=== PATIENT | male | born 1955 | race Caucasian/White ===

== ENCOUNTER → 2016-10-22 | Outpatient (CLI) | payer OTHER ==
[~2016-10-22] MED LIST: CHOL1CAP30 PO; COEN100C7; DEXTSYP41 PO; MAGNESIUM OXIDE PO; METO-157 PO; MULTCHW PO; NXM/40 PO; SIMV20TA2 PO; ZINC50TA3 PO
[2016-10-22 09:55] LABS: CALCIUM 9.1 mg/dl (8.5-10.1)
[2016-10-22 09:57] LABS: ALT/SGPT 30 U/L (12-78); BLOOD UREA NITROGEN 11 mg/dl (7-18); BUN/CREATININE RATIO 10.3 (10-20); CARBON DIOXIDE 29 mmol/L (21-32); CHLORIDE 108 mmol/L (98-107); CHOLESTEROL 172 mg/dl (0-200); GLUCOSE 87 mg/dl (70-99); SODIUM 142 mmol/L (136-145); TRIGLYCERIDES 86 mg/dl (0-150); VERY LOW DENSITY LIPOPROT CALC 17 mg/dl
[2016-10-22 10:02] LABS: ALB/GLOB RATIO 1.1 (0.9-2); ALKALINE PHOSPHATASE 100 U/L (45-117); AST/SGOT 21 U/L (15-37); CHOLESTEROL/HDL RATIO 2.9; HDL CHOLESTEROL 60 mg/dl; LDL CHOLESTEROL CALCULATED 95 mg/dl
== END | disposition home or self-care (01) ==
LOC: C.LAB 08:24
PROVIDERS: ATTEND Internal Medicine
DX: Z11.59 Encounter for screening for other viral diseases (principal); Z80.42 Family history of malignant neoplasm of prostate; E78.00 Pure hypercholesterolemia, unspecified

== ENCOUNTER → 2017-09-16 | Day surgery (SDC) | payer OTHER ==
[2017-09-10 07:47] VITALS: Ht 160 cm; Wt 57.3 kg
[~2017-09-16] VITALS: Ht 160 cm; Wt 57.3 kg
[~2017-09-16] MED LIST changes: +ASPCH81X PO; +CEPH500C2 PO; +CHOL100010 PO; -CHOL1CAP30 PO; -COEN100C7; +COEN1CAP17 PO; +COEN30CA8 PO; -DEXTSYP41 PO; +LIDOCAINE HCL 2% 2 ML VIAL (20MG/ML) ONE; +MAGN250T16 PO; -MAGNESIUM OXIDE PO; -METO-157 PO; +METO5TAB2 PO; +MULT-506 PO; -MULTCHW PO; -NXM/40 PO; +PANT40TA PO; +PANT40TA2 PO; +PROPOFOL IV EMULSION 10 MG/ML 20 ML VIAL IV ONE; +RGL/5 PO; +SACC250C3 PO; +SIMV-151 PO; +SULF800T23 PO; +ZINC PO; +ZINC30TA3 PO; -ZINC50TA3 PO
--- NOTE | 2017-09-16 10:29 | Endo History and Physical ---
History & Physical Date of Service: Sep 16, 2017. Chief Complaint: Dysphagia Referring Physician: Dr. George Finley History of Present Illness 61 yo CM who presents for EGD secondary to dysphagia. Past Medical History Gastrointestinal Disorder, Reflux, High Cholesterol Past Surgical History Hx Cardiac Surgery: Yes (HEART CATH/NO STENTS) Hx Internal Defibrillator: No Hx Pacemaker: No Hx Abdominal Surgery: No Hx of Implantable Prosthesis: No Hx Post-Op Nausea and Vomiting: No Hx Cancer Surgery: No Hx Thoracic Surgery: No Hx Orthopedic: Yes (GANGLION WRIST L,TOE EXCISION GANGLION,ORIF R FINGER) Hx Urinary Tract Surgery: No Family History IBD Social History Smoking Status: Never Smoker Hx Substance Use: No Hx Alcohol Use: Yes (1 GLASS OF WINE ON MOST DAYS) Allergies Coded Allergies: No Known Allergies (Verified , 09/16/17) Current Medications Reported Home Medications Medications Dose Route/Sig Max Daily Dose Days Date Category Dose Instructions Aspirin Chewable (Aspirin) 81 Mg Chew 81 Mg PO QAM 09/10/17 Reported [Zinc] Unknown Dose PO DAILY 09/10/17 Reported Vitamin D (Cholecalciferol) 1,000 Unit Tab 1 Tab PO DAILY 09/10/17 Reported Zocor (Simvastatin) 20 Mg Tab 20 Mg PO QPM 09/10/17 Reported Protonix (Pantoprazole Sodium) 40 Mg Tab 40 Mg PO QAM 09/10/17 Reported ON HOLD Metoclopramide Hcl 5 Mg Tab 1 Tab PO BID PRN 09/10/17 Reported Magnesium Oxide (Magnesium Oxide (Mg Supplement) 250 Mg Tab 1 Tab PO BID 09/10/17 Reported Coq-10 (Coenzyme Q10 (Ubidecarenone)) 30 Mg Cap Unknown Dose PO DAILY 09/10/17 Reported Multivitamin (Multivitamins) Tab 1 Tab PO DAILY 09/10/17 Reported Vital Signs Weight (Kilograms): 57.27 Height (Feet): 5 Height (Inches): 3 Date Time Temp Pulse Resp B/P (MAP) Pulse Ox O2 Delivery O2 Flow Rate FiO2 09/16/17 10:09 36.7 83 20 132/89 (103) 97 Room Air Physical Exam General Appearance: WD/WN, no apparent distress Respiratory/Chest: Auscultation: breath sounds normal Cardiovascular: Heart Auscultation: RRR Abdomen: Bowel Sounds: normal Inspection & Palpation: soft, non-distended, no tenderness, guarding & rebound Assessment and Plan Assessment: 61 yo CM who presents for EGD secondary to dysphagia. Plan: Proceed with EGD.
--- NOTE | 2017-09-16 11:32 | GI REPORT ---
Procedure Date: 09/16/2017 11:03 AM Procedure: Upper GI endoscopy Indications: Dysphagia Medicines: Monitored Anesthesia Care Complications: No immediate complications. Estimated Blood Loss: Estimated blood loss: none. Procedure: Pre-Anesthesia Assessment: - Prior to the procedure, a History and Physical was performed, and patient medications and allergies were reviewed. The patient's tolerance of previous anesthesia was also reviewed. The risks and benefits of the procedure and the sedation options and risks were discussed with the patient. All questions were answered, and informed consent was obtained. Prior Anticoagulants: The patient has taken aspirin, last dose was 6 days prior to procedure. ASA Grade Assessment: II - A patient with mild systemic disease. After reviewing the risks and benefits, the patient was deemed in satisfactory condition to undergo the procedure. After obtaining informed consent, the endoscope was passed under direct vision. Throughout the procedure, the patient's blood pressure, pulse, and oxygen saturations were monitored continuously. The On-site loaner was introduced through the mouth, and advanced to the second part of duodenum. The upper GI endoscopy was accomplished without difficulty. The patient tolerated the procedure well. Findings: Biopsies were taken with a cold forceps in the middle third of the esophagus for histology. A moderate Schatzki ring (acquired) was found at the gastroesophageal junction. A TTS dilator was passed through the scope. Dilation with a 15-16.5-18 mm balloon dilator was performed to 16.5 mm. The dilation site was examined and showed moderate improvement in luminal narrowing. A small hiatal hernia was present. The examined duodenum was normal. Impression: - Moderate Schatzki ring. Dilated. - Small hiatal hernia. - Normal examined duodenum. - Biopsies were taken with a cold forceps for histology in the middle third of the esophagus. Recommendation: - Resume previous diet. - Continue present medications. - Await pathology results. - Return to primary care physician as previously scheduled. Christopher Mishra, 09/16/2017 11:31:45 AM This report has been signed electronically. Note Initiated On: 09/16/2017 11:03 AM I attest to the content of the Intraoperative Record and orders documented therein, exceptions below
[2017-09-16 12:05] VITALS: BP 111/75; PULSE 80; O2SAT 98
--- NOTE | 2017-09-16 12:23 | Anesthesiology Progress Note ---
Anesthesia Post Op Note Date & Time Sep 16, 2017 at 12:23 Vital Signs Pain Intensity: 0 Vital Signs Past 12 Hours Date Time Temp Pulse Resp B/P (MAP) Pulse Ox O2 Delivery O2 Flow Rate FiO2 09/16/17 12:05 80 20 111/75 (87) 98 Room Air 09/16/17 11:49 79 20 103/72 (82) 96 Room Air 09/16/17 11:34 36.4 61 20 107/73 (84) 96 Room Air 09/16/17 10:09 36.7 83 20 132/89 (103) 97 Room Air Notes Mental Status: alert / awake / arousable, participated in evaluation Pt Amnestic to Procedure: Yes Nausea / Vomiting: adequately controlled Pain: adequately controlled Airway Patency, RR, SpO2: stable & adequate BP & HR: stable & adequate Hydration State: stable & adequate Anesthetic Complications: no major complications apparent
--- NOTE | 2017-09-16 12:29 | Discharge Instructions ---
Endoscopy Patient Instructions Date / Procedure(s) Performed Sep 16, 2017. EGD Allergy Information Coded Allergies: No Known Allergies (Verified , 09/16/17) Discharge Date / Findings Sep 16, 2017. Schatzki's ring s/p dilation Hiatal hernia Mid-esophageal biopsies Medication Instructions 1) Restart Pantoprazole 40mg by mouth each morning 1/2 hour prior to breakfast. 2) OK to resume all medications today as prescribed Reported Home Medications Medications Dose Route/Sig Max Daily Dose Days Date Category Dose Instructions Aspirin Chewable (Aspirin) 81 Mg Chew 81 Mg PO QAM 09/10/17 Reported [Zinc] Unknown Dose PO DAILY 09/10/17 Reported Vitamin D (Cholecalciferol) 1,000 Unit Tab 1 Tab PO DAILY 09/10/17 Reported Zocor (Simvastatin) 20 Mg Tab 20 Mg PO QPM 09/10/17 Reported Protonix (Pantoprazole Sodium) 40 Mg Tab 40 Mg PO QAM 09/10/17 Reported ON HOLD Metoclopramide Hcl 5 Mg Tab 1 Tab PO BID PRN 09/10/17 Reported Magnesium Oxide (Magnesium Oxide (Mg Supplement) 250 Mg Tab 1 Tab PO BID 09/10/17 Reported Coq-10 (Coenzyme Q10 (Ubidecarenone)) 30 Mg Cap Unknown Dose PO DAILY 09/10/17 Reported Multivitamin (Multivitamins) Tab 1 Tab PO DAILY 09/10/17 Reported Provider Instructions Activity Restrictions - No exercising or heavy lifting for 24 hours. - Do not drink alcohol the day of the procedure. - Do not drive a car or operate machinery until the day after the procedure. - Do not make any important decisions or sign important papers in 24 hours after the procedure. Following Day: - Return to full activity which may include returning to work/school. Diet Start your diet with liquids and light foods (jello, soup, juice, toast). Then eat your usual diet if not nauseated. Treatment For Common After Affects For mild abdominal pain, bloating, or excessive gas: - Rest - Eat lightly - Lie on right side Follow-Up Information Follow-up with Dr. George Finley as scheduled Anesthesia Information What You Should Know You have had a procedure that required some medicine to reduce anxiety and discomfort. This treatment is called moderate sedation. After receiving the treatment, you may be sleepy, but you will be able to breathe on your own. The effects of the treatment may last for several hours. Follow these instructions along with Activity/Diet recommendations noted above: * Do NOT do anything where dizziness or clumsiness would be dangerous. * Rest quietly at home today, then you can be up and about tomorrow. * Have a responsible person stay with you the rest of today. * You may have had an I.V. today. If so, you may take the dressing off later today. Recommendations Call your doctor if: * Trouble breathing * Continuous vomiting for more than 24 hours * Temperature above 101 degrees * Severe abdominal pain or bloating * Pain not relieved by pain medicine ordered * There is increased drainage or redness from any incision * A large amount of rectal bleeding greater than 2-3 tablespoons. (If you had a polyp/s removed or have hemorrhoids, a small amount of blood - from the rectum is to be expected.) * You have any unanswered questions or concerns. IN THE EVENT OF A SERIOUS EMERGENCY, GO TO THE NEAREST EMERGENCY ROOM Your discharge instructions were prepared by provider Christopher Mishra. Patient Instructions Signature Page Nile Handy Patient (or Guardian) Signature/Date: I have read and understand the instructions given to me by my caregivers. Caregiver/RN/Doctor Signature/Date: The above-named patient and/or guardian has received patient instructions on this date. + Original Patient Signature Page (only) stays with chart. Please make copy for patient.
== END | disposition home or self-care (01) ==
LOC: C.GI 09:43
PROVIDERS: ATTEND Internal Medicine
DX: R13.10 Dysphagia, unspecified (principal); K20.9 Esophagitis, unspecified; K44.9 Diaphragmatic hernia without obstruction or gangrene; K22.2 Esophageal obstruction; K21.9 Gastro-esophageal reflux disease without esophagitis; E78.00 Pure hypercholesterolemia, unspecified; Z79.82 Long term (current) use of aspirin; Z79.899 Other long term (current) drug therapy

== ENCOUNTER 2017-09-20 13:58 | Emergency (ER) | payer OTHER ==
[~2017-09-20] VITALS: Ht 160 cm; Wt 59.4 kg
[~2017-09-20 13:58] MED LIST changes: -CEPH500C2 PO; -COEN1CAP17 PO; -LIDOCAINE HCL 2% 2 ML VIAL (20MG/ML) ONE; -PANT40TA2 PO; -PROPOFOL IV EMULSION 10 MG/ML 20 ML VIAL IV ONE; -RGL/5 PO; -SACC250C3 PO; -SIMV-151 PO; -SULF800T23 PO; -ZINC30TA3 PO
[2017-09-20 14:04] VITALS: Ht 160 cm; Wt 59.4 kg
[2017-09-20 14:28] VITALS: TEMP 36.8
--- NOTE | 2017-09-20 14:28 | EMERGENCY ROOM VISIT NOTE ---
History Report prepared by Rhona: Nikki Boyce Under the Supervision of: Dr. Jamie Garnica M.D. First contact with patient: 14:18 Chief Complaint: TOE PAIN, INJURY Stated Complaint: SWOLLEN TOE,REDNESS SPREADING TO FOOT History of Present Illness The patient is a 61 year old male who presents to the Emergency Room with complaints of persistent redness on his right second toe that started yesterday. The patient rates his pain a 4/10 in severity. The patient reports he has a history of ganglion cysts on his right foot. He notes he got one drained a couple of years ago. He states it has continued to move to the surface of his skin. The patient states the redness keeps spreading. He notes he had a small fever at home. The patient reports he does not have diabetes. He states he has a history of hyperlipidemia. The patient denies any nausea, vomiting, headache, dizziness, cough, or congestion. Source of History: patient Onset: yesteday Position: toe(s) Symptom Intensity: 4/10 Timing: other (persistent) Associated Symptoms: + fevers, No headache, No cough, No nausea, No vomiting Note: Denies dizziness or congestion. Review of Systems See HPI for pertinent positives and negatives. A total of ten systems were reviewed and were otherwise negative. Past Medical & Surgical Hyperlipidemia. Family History Diabetes mellitus Kidney disease Kidney stones Social History Smoking Status: Never Smoker Alcohol Use: occasionally Drug Use: none Marital Status: Housing Status: lives with family Occupation Status: employed Current/Historical Medications Scheduled Cephalexin Monohydrate (Keflex), 500 MG PO QID Cholecalciferol (Vitamin D), 1,000 INTER.UNIT PO DAILY Coenzyme Q10 (Ubidecarenone) (Co Q 10), 100 MG PO DAILY Magnesium Oxide (Mg Supplement (Magnesium Oxide), 250 MG PO BID Multivitamin (Multivitamin), 1 TAB PO DAILY Pantoprazole (Pantoprazole Sodium), 40 MG PO DAILY Saccharomyces Boulardii (Florastor), 1 CAP PO BID Simvastatin (Simvastatin), 20 MG PO HS Sulfa/Trimethoprim (Bactrim Ds 800MG/160MG), 1 TAB PO BID Sulfa/Trimethoprim (Bactrim Ds 800MG/160MG), 1 TAB PO BID Zinc Gluconate (Zinc), 30 MG PO DAILY Scheduled PRN Metoclopramide HCl (Metoclopramide HCl), 5 MG PO BID PRN for Bloating Allergies Coded Allergies: No Known Allergies (Verified , 09/16/17) Physical Exam Vital Signs Date Time Temp Pulse Resp B/P (MAP) Pulse Ox O2 Delivery O2 Flow Rate FiO2 09/20/17 18:04 76 18 127/82 97 09/20/17 16:04 91 18 137/85 96 Room Air 09/20/17 14:28 36.8 98 14 141/90 95 Room Air 09/20/17 14:04 36.7 107 18 142/77 96 Room Air Physical Exam GENERAL: Awake, alert, well-appearing, in no distress HENT: Normocephalic, atraumatic. Oropharynx unremarkable. EYES: Normal conjunctiva. Sclera non-icteric. NECK: Supple. No nuchal rigidity. FROM. No JVD. RESPIRATORY: Clear to auscultation. CARDIAC: Regular rate, normal rhythm. Extremities warm and well perfused. Pulses equal. ABDOMEN: Soft, non-distended. No tenderness to palpation. No rebound or guarding. No masses. RECTAL: Deferred. MUSCULOSKELETAL: Chest examination reveals no tenderness. The back is symmetrical on inspection without obvious abnormality. There is no CVA tenderness to palpation. No joint edema. LOWER EXTREMITIES: Calves are equal size bilaterally and non-tender. Mild edema , erythema, and warmth of the distal right 2nd phalanx with area of fluctuance on dorsal aspect of the distal phalanx. NEURO: Normal sensorium. No sensory or motor deficits noted. SKIN: No rash or jaundice noted. Medical Decision & Procedures ER Provider Diagnostic Interpretation: Radiology results as stated below per my review and radiologist interpretation: R TOE(S) MIN 2 VIEWS CLINICAL HISTORY: second toe pain swelling pain. Edema. COMPARISON: None. DISCUSSION: Mild degenerative change distal flange of joint second toe. Localized soft tissue edema. No evidence for acute fracture or dislocation. Cortical margins appear to be intact. IMPRESSION: Nonspecific soft tissue edema overlying the distal phalanx right second toe. No acute bony abnormality The above report was generated using voice recognition software. It may contain grammatical, syntax or spelling errors. Electronically signed by: Reginald Calvo M.D. 09/20/2017 3:16 PM Dictated Date/Time: 09/20/2017 3:15 PM Medications Administered Medications (Trade) Dose Ordered Sig/[place] Route Start Time Stop Time Status Last Admin Dose Admin Cephalexin Monohydrate (Keflex Cap) 500 mg NOW STAT PO 09/20/17 17:44 09/20/17 17:45 DC 09/20/17 18:03 500 MG Cephalexin Monohydrate (Keflex 500MG Home Pack) 1 homepack NOW STAT PO 09/20/17 17:44 09/20/17 17:45 DC 09/20/17 18:03 1 HOMEPACK Trimethoprim/ Sulfamethoxazole (Septra Ds 800/ 160MG Tab) 2 tab NOW STAT PO 09/20/17 17:44 09/20/17 17:45 DC 09/20/17 18:03 2 TAB Procedure Incision & Drainage Indication: Dactylitis/abscess/cyst Location: Second right phalanx/toe Verbal consent was obtained after the risks and benefits were explained, including but not limited to bleeding, scarring, infection, pain, and bone/joint /nerve damage. At this time, the risks of the procedure are less than the risks of NOT performing the procedure. A time out was taken and the correct patient and site identified. The skin was prepped with betadine and a sterile field set. Area of fluctuance was entered with a number 11 blade and sero-sanguinous material expressed. Detailed wound care instructions and signs and symptoms of worsening infection reviewed with the patient. No complications and the patient tolerated the procedure well. ED Course 1418: The patient was evaluated in room C3. A complete history and physical exam was performed. 1700: I reevaluated the patient. Discussed results and discharge instructions: He verbalized understanding and agreement. The patient is ready for discharge. Medical Decision I reviewed the patient's past medical history, medications, and the nursing notes as described above. Differential diagnosis: Etiologies such as cellulitis, abscess, MRSA infection, DVT, necrotizing fasciitis, dermatitis, drug eruption, as well as others were entertained.. The patient is a 61-year-old gentleman with a past medical history of ganglion cysts followed by podiatry presents emergency department with worsening redness , warmth, and weeks per hpi. On arrival, patient is well-appearing no acute distress, afebrile stable vital signs. On exam patient has mild redness and warmth small area of fluctuance the dorsal aspect. Distal PMS intact. X-ray unremarkable. I&D of the area of fluctuance attempted per procedure note. Patient agreeable to deferring digital block given that area is small and would not require debridement. No purulence release although sero-sanguinous discharge from likely phlegmon with moderate improvement in swelling. The patient is currently on 1 tablet of double strength Bactrim twice daily. Thus, will increase coverage to 2 tablets of Bactrim DS BID and will add additional Gram+ coverage with Keflex. Patient will contact his podiatry tomorrow for a prompt f/u appointment. Findings and plan for follow-up reviewed with patient. Patient agreeable and d/c'd per discharge instructions. Medication Reconcilliation Current Medication List: was personally reviewed by me Impression Primary Impression: Dactylitis of toe Scribe Attestation The scribe's documentation has been prepared under my direction and personally reviewed by me in its entirety. I confirm that the note above accurately reflects all work, treatment, procedures, and medical decision making performed by me. Departure Information Dispostion Home / Self-Care Prescriptions Saccharomyces Boulardii (Florastor) 250 Mg Cap 1 CAP PO BID for 10 Days, #20 CAP Prov: Jamie Garnica M.D. 09/20/17 Cephalexin Monohydrate (KEFLEX) 500 Mg Cap 500 MG PO QID for 7 Days, #28 CAP Prov: Jamie Garnica M.D. 09/20/17 Sulfa/Trimethoprim (Bactrim Ds 800MG/160MG) Tab 1 TAB PO BID, #14 TAB Take with your current Bactrim DS prescription for dosing of 2 tablets twice daily. Prov: Jamie Garnica M.D. 09/20/17 Referrals George Finley M.D. 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 Acetaminophen or ibuprofen for pain and fevers as needed. Bactrim 2 tablets twice daily Keflex as directed. Florastor, probiotic, to help prevent antibiotic associated diarrhea. Drink plenty of fluids to ensure hydration. Return to the emergency department for worsening symptoms as described in the accompanying instructions.
[2017-09-20] MEDS ORDERED: XYLOCAINE 1%/SOD BICARB 20 ML VIAL INFIL ONE (14:45)
--- NOTE | 2017-09-20 15:17 | DIAGNOSTIC IMAGING REPORT ---
R TOE(S) MIN 2 VIEWS CLINICAL HISTORY: second toe pain swelling pain. Edema. COMPARISON: None. DISCUSSION: Mild degenerative change distal flange of joint second toe. Localized soft tissue edema. No evidence for acute fracture or dislocation. Cortical margins appear to be intact. IMPRESSION: Nonspecific soft tissue edema overlying the distal phalanx right second toe. No acute bony abnormality The above report was generated using voice recognition software. It may contain grammatical, syntax or spelling errors. Electronically signed by: Reginald Calvo M.D. 09/20/2017 3:16 PM Dictated Date/Time: 09/20/2017 3:15 PM
[2017-09-20] MEDS ORDERED: RGL/5 PO (15:40)
[2017-09-20] MEDS ORDERED: SULF800T23 PO ×2 (15:40→17:47)
[2017-09-20] MEDS ORDERED: SIMV-151 PO (15:40)
[2017-09-20] MEDS ORDERED: PANT40TA2 PO (15:40)
[2017-09-20] MEDS ORDERED: COEN1CAP17 PO (15:40)
[2017-09-20] MEDS ORDERED: ZINC30TA3 PO (15:40)
[2017-09-20] MEDS ORDERED: SULFAMETHOXAZOLE/TRIMETHOPRIM DS 800/160MG TAB PO STA (17:44)
[2017-09-20] MEDS ORDERED: CEPHALEXIN 500MG HOME PACK 1 EA BTL PO STA (17:44)
[2017-09-20] MEDS ORDERED: CEPHALEXIN MONOHYDRATE 250 MG CAP PO STA (17:44)
[2017-09-20] MEDS ORDERED: CEPH500C2 PO (17:47)
[2017-09-20] MEDS ORDERED: SACC250C3 PO (17:49)
[2017-09-20 18:04] VITALS: BP 127/82; PULSE 76; O2SAT 97
== END 2017-09-20 18:04 | disposition home or self-care (01) ==
LOC: C.EDB 14:00 → C.EDC 18:04
DX: L08.9 Local infection of the skin and subcutaneous tissue, unspecified (principal); E78.5 Hyperlipidemia, unspecified; Z83.3 Family history of diabetes mellitus; Z84.1 Family history of disorders of kidney and ureter; Z79.899 Other long term (current) drug therapy

== ENCOUNTER 2022-05-15 05:55 | Observation (INO) ==
--- NOTE | 2022-05-13 10:46 | Anesthesiology Consultation ---
Date of Service May 13, 2022 Assessment & Plan (1) Encounter for pre-operative examination: - COVID screening: Per assessment on 05/09: No known COVID-19 positive contacts or current COVID-19 related symptoms. Travel screen negative. Patient vaccinated. At surgeon discretion if preop Covid testing being done. - S/P left lap inguinal hernia repair (01/25/18): Grade 3 view, MAC#3, ETT 7.5 at [facility]. No issues noted per post-op anesthesia progress note. Chart Review Chart Review: Acceptable Risk for Surgery (pending evaluation AM DOS) and Patient NOT seen in Pre Admission Testing History Surgery Operation Date: 05/15/22 07:30 Proposed Procedures p Robotic Laparoscopic Assisted Partial Nephrectomy, Possible Radical - He Pederson, Height/Weight Height: 5 ft 3 in Weight: 54.885 kg Allergies Allergy/AdvReac Type Severity Reaction Status Date / Time chlorhexidine Allergy Mild rash Verified 05/09/22 09:47 hydrocodone AdvReac Intermediate Vomiting Verified 05/09/22 09:47 morphine AdvReac Intermediate NAUSEA Verified 05/09/22 09:47 VOMITING Medications Home Medications Medication Instructions Recorded Confirmed Last Taken coQ10 (ubiquinol) 100 mg capsule 100 mg PO HS 04/13/18 05/09/22 01/22/21 magnesium oxide 250 mg PO BID 04/13/18 05/09/22 01/23/21 multivitamin 1 tab PO QAM 04/13/18 05/09/22 01/23/21 zinc 50 mg tablet 30 mg PO QAM 04/13/18 05/09/22 01/23/21 cholecalciferol (vitamin D3) 50 2,000 unit PO QAM 11/30/18 05/09/22 01/23/21 mcg (2,000 unit) capsule (Vitamin D3) potassium gluconate 595 mg (99 mg) 595 mg PO QAM 11/22/19 05/09/22 01/23/21 tablet simvastatin 40 mg tablet 40 mg PO HS 11/22/19 05/09/22 01/24/21 metoclopramide HCl 5 mg tablet 5 mg PO AC PRN ABDOMINAL BLOATING 01/11/21 05/09/22 01/24/21 (Reglan) #30 tabs ciprofloxacin HCl 500 mg tablet 500 mg PO BID #10 tabs 04/02/21 05/09/22 Unknown (Cipro) sildenafil (pulm.hypertension) 20 100 mg PO ONCE PRN sexual activity 04/02/21 05/09/22 Unknown mg tablet #30 tabs pantoprazole 40 mg tablet,delayed 40 mg PO QAM #90 tabs 06/26/21 05/09/22 Unknown release tadalafil 5 mg tablet 20 mg PO ONCE PRN sexual activity 12/04/21 05/09/22 Unknown #30 tabs tamsulosin 0.4 mg capsule 0.4 mg PO HS #90 caps 12/04/21 05/09/22 Unknown dutasteride 0.5 mg capsule 0.5 mg PO HS 05/09/22 05/09/22 Unknown Past Medical History Medical History CAD (coronary artery disease) Mild non-obstructive per 2018 cardiac cath DJD (degenerative joint disease) Enlarged prostate with lower urinary tract symptoms (LUTS) Esophageal stricture Hx Schatzski's ring/esophageal dilation GERD (gastroesophageal reflux disease) Hearing deficit Hiatal hernia History of COVID-17 Oct 2021 > not hospitalized History of diverticulitis History of kidney stones passed on own Hyperlipidemia Renal mass Schatzki's ring Past Family History Family History Father Diabetes Family history of diabetes mellitus Mother Family history of irritable bowel syndrome Uncle Prostate cancer Other No family history of adverse response to anesthesia Past Surgical History Surgical History Fracture, metacarpal Right Hand metacarpal -- with hardware History of arthroscopy KNEE ? SIDE History of cardiac cath 2017- no stents History of carpal tunnel release left History of colonoscopy History of esophageal dilatation History of esophagogastroduodenoscopy (EGD) MULTIPLE History of herniorrhaphy Laparoscopic left inguinal hernia repair with 3D max mesh 01/25/18 Dr. Burden History of wisdom tooth extraction Nausea and vomiting after administration of anesthetic agent S/P inguinal hernia repair Right Inguinal Hernia Open Repair Dr. Burden 01-25-19 Social History Smoking Status: Never smoker Do You Dip or Chew Tobacco: No Hx Alcohol Use: Yes Alcohol type: hard liquor alcohol intake frequency: 0-2 drinks per day Alcohol Intake Frequency Comment: 1 mixed drink per day Hx Substance Use: No substance use type: does not use Lab Results Anesthesia Preop Results Results Anesthesia Widget: WBC 6.49 K/ul (4.8-10.8) 05/02/22 Hgb 15.4 g/dl (14.0-18.0) 05/02/22 Hct 46.5 % (40.1-51.0) 05/02/22 Plt 292 K/uL (130-400) 05/02/22 Na 138 mmol/L (136-145) 05/02/22 K 4.0 mmol/L (3.5-5.1) 05/02/22 Cl 103 mmol/L (98-107) 05/02/22 CO2 31 mmol/L (21-32) 05/02/22 BUN 15 mg/dl (6-23) 05/02/22 Creat 0.94 mg/dl (0.6-1.4) 05/02/22 Glucose Level 91 mg/dl (70-99(Fasting)) 05/02/22 Urine Color Yellow 05/02/22 Urine Appearance Clear (Clear) 05/02/22 Urine pH 7.5 (4.5-7.5) 05/02/22 Urine Specific [place] 1.013 (1.000-1.030) 05/02/22 Urine Protein Negative (Negative) 05/02/22 Urine Glucose (UA) Negative (Negative) 05/02/22 Urine Ketones Negative (Negative) 05/02/22 Urine Blood Negative (Negative) 05/02/22 Urine Nitrite Negative (Negative) 05/02/22 Urine Bilirubin Negative (Negative) 05/02/22 Urine Urobilinogen Negative (Negative) 05/02/22 Urine Leukocyte Esterase Negative (Negative) 05/02/22 Testing Electrocardiogram Date: 05/02/22 SR with fusion complexes. Otherwise normal ECG. No physical limitations and no cardiopulmonary complaints noted per PAT RN phone interview 05/09/22* Chest X-Ray Date: 05/02/22 FINDINGS: Lung volumes are normal. Lungs are clear. There is no pneumothorax or pleural effusion. Cardiac size is normal. Mediastinal contours are normal. There is no evidence for pulmonary edema. Mild S-shaped scoliosis of the thoracic spine is incidentally noted. IMPRESSION: No acute cardiopulmonary findings. Echocardiogram Date: 08/14/17 LVEF 55-60%. Mild to moderate AR. Atrial septal aneurysm. Cannot r/o small PFO. Grade I DD. Stress Test Date: 08/14/17 EKG positive for ischemia- subsequent cardiac cath 08/17/17 with mild nonobstructive CAD. Cardiac Catheterization Date: 08/17/17 Mild nonobstructive CAD. Normal LV systolic function.
[2022-05-15] MEDS ORDERED: ceFAZolin 2000MG 2,000 MG/15 ML SYR IV SCH (06:00)
[2022-05-15] MEDS ORDERED: LR 15ML/HR IV SCH (06:00)
[2022-05-15] MEDS ORDERED: ACETAMINOPHEN 1000 MG/100 ML IV IV ONE (06:54)
[2022-05-15] MEDS ORDERED: MANNITOL 25% 12.5 GM/50 ML VIAL IV ONE (06:54)
[2022-05-15] MEDS ORDERED: BUPIVACAINE 0.5 % 5 MG/1 ML MPF 30ML VIAL ONE (06:59)
[2022-05-15] MEDS ORDERED: SCOPOLAMINE 1 MG TDSY TD ONE ×2 (07:03→07:04)
[2022-05-15] MEDS ORDERED: ePHEDrine sulfate 50 MG/ML AMP IV PRN (07:05)
[2022-05-15] MEDS ORDERED: ATROPINE SULFATE 0.1 MG/ML 10ML SYR IV PRN (07:05)
[2022-05-15] MEDS ORDERED: ONDANSETRON INJ 2 MG/ML 2 ML VIAL IV PRN ×2 (07:05→13:53)
[2022-05-15] MEDS ORDERED: ROCURONIUM BROMIDE 10 MG/ML 5 ML VIAL IV ONE ×2 (07:17→09:36)
[2022-05-15] MEDS ORDERED: LIDOCAINE 2% 20 MG/ML 5 ML SYR IV ONE (07:17)
[2022-05-15] MEDS ORDERED: PROPOFOL IV EMULSION 10 MG/ML 20 ML VIAL IV ONE (07:17)
[2022-05-15] MEDS ORDERED: MIDAZOLAM HCL 1 MG/ML 2ML VIAL ONE (07:18)
[2022-05-15] MEDS ORDERED: fentaNYL citrate 100 MCG/2 ML VIAL ONE ×2 (07:18→08:35)
--- NOTE | 2022-05-15 07:21 | History & Physical Bridge Note ---
Date of Service May 15, 2022 History & Physical Bridge Note I have examined the patient, reviewed the History & Physical and in the interval since the performance of the History & Physical I have noted the following changes of clinical significance: no changes noted
[2022-05-15] MEDS ORDERED: ePHEDrine sulfate 50 MG/ML AMP ONE (08:20)
[2022-05-15] MEDS ORDERED: SUGAMMADEX SODIUM 200 MG/2 ML VIAL IV ONE (10:32)
[2022-05-15] MEDS ORDERED: ONDANSETRON INJ 2 MG/ML 2 ML VIAL ONE (10:52)
--- NOTE | 2022-05-15 11:27 | Operative Report ---
PG Post Operative Report Pre & Post Diagnosis Operation Date: 05/15/22 07:30 Pre-Op Diagnosis: Right Renal Mass Post-Op Diagnosis: Right Renal Mass I identified the patient and participated in the time-out.: Yes Procedure Operation Date: 05/15/22 07:30 Actual Procedures p Robotic Assisted Right Laparoscopic Partial Nephrectomy(Right) - He Pederson DO Surgeon He Pederson, II, DO Environmental Compliance Manager Shreyas Berg MD Estimated Blood Loss 50 Findings Consistent with Post-Op Diagnosis [place]pole Anterior largely endophytic renal mass just anterior to renal hilum. The mass on top of but not penetrating or involving a major branch of renal artery, the main renal vein, and the renal pelvis. Tumor dissected free and away from the major structures and removed. Specimens Right renal mass Drains 9 Fr Philip drain 18 Fr Salcedo Anesthesia Type General Complications none Disposition Disposition: Recovery Room Indications Patient with right renal mass suspicious for malignancy. Risks and benefits discussed at length. Description of Procedure The patient was brought to the operative suite and placed under general endotracheal intubation anesthesia in the supine position. The patient was transferred to lateral position with the right flank exposed. The patient was placed into a flex'ed position and then placed into mild reverse Trendelenberg. At this point, the patient prepped and draped in the usual sterile fashion and a timeout was completed. Preoperative weight based antibiotics had been given. KELLIE's and SCD's were placed on the patient's lower extremities. A catheter was placed by nursing using sterile technique. With the time out completed the patient was flexed and the skin was marked. One of the robotic port site was anesthetized. A small incision was made into the skin and subcutaneous tissues. A Varess needle was selected and placed. The needle was easily moved and it was irrigated and aspirated without any issues or concerns for placement. Insufflation commenced. The 8 mm port was placed. The abdominal cavity was further insufflated. The laparoscopic camera was placed and the abdominal cavity inspected. No concerning features were noted. At this point, the skin was marked for port placement and the 8mm working ports were placed. The skin was anesthetized down to fascia and an approx 1cm incision was made to place the 2 x 8mm ports. Two 12 mm payroll and benefits assistant ports were also placed in similar fashion under direct visualization. The robot was positioned and docked. The camera was placed and all trocars were positioned under direct visualization. Nahomi Pritchett JOSELITO was integral in port placement, camera utilization, and docking procedure. She remained in sterile attire and then proceeded to assist the remainder of the case. The colon was mobilized medially to expose the retroperitoneum and the area assessed. Adhesions were freed to allow mobilization. A small amount of further adhesions were noted from the colon and were freed. These were dissected with blunt technique. Cautery was used to assist dissection and control bleeding. The retroperitoneal fat was assessed. Starting distally the retroperitoneum was dissected and care was taken to dissect down near the IVC. The gonadal vein and ureter were identified. This was then followed superiorly. Dissection stayed toward the midline along the IVC and the ureter and gonadal vein were followed up towards the renal hilum. The dissection was followed to the renal pelvis. The Renal Vein was identified and exposed. Dissection was taken further superior. The Renal Artery and Vein were then cleaned and exposed. Clamp placement was assessed and good access was achieved. Due to the known location of the renal mass anterior to the hilum, the vein and artery were fully exposed and cleaned up to the insertion into the kidney. The main renal artery had an anterior branch going directly to the mass and this was isolated and exposed in order to allow placement of a clip if major bleeding. The renal vein inserted directly posterior to the mass. This was dissected free up until more normal kidney tissue was appreciated. The renal pelvis was followed up to the insertion of the kidney and as it was posterior to the vessels did not involve the mass and only the most inferior portion was found near the tumor. The perirenal fat anterior to the kidney was then dissected. The mass and surrounding tissues were exposed. The kidney was then further mobilized. The ultrasound probe was placed and the mass further examined. The edges were marked. The Vessels were assessed a final time. At this point, Dr. Berg scrubbed in the case and assumed drug safety assistant position. A bulldog clamp was placed on the artery and then on the vein. The kidney appropriately blanched. The previously marked margins were used to start the incision into the kidney. The mass was completely excised without evidence of penetrating into the capsule of the mass. The most posterior part and medial parts of the mass did lay directly on the renal vein and a portion of the anterior branch of the renal artery. Meticulous dissection allowed these to be dissected free. The tumor capsule did not at any point appear to involve these vessels and the tumor was able to be dissected free. The mass was quite deep/endophytic and dissection was taken down towards the collecting system but did not appear to enter the collecting system at any point. A small vessel was appreciated to branch off of the renal vein and enter the mass. This was ligated and cut. The base of resection bed was assessed and small vessels were cauterized. The collecting system did not appear to be opened. A barbed suture was selected and the nephrotomy closed. Care was taken to close the collecting system opening. 3-0 Vicryl sutures were then used to close the edges of the elliptical opening. Three Vicryl sutures were used to close and bolster the edges. At this point, the bulldog clamps were removed. Warm ischemia time, in total, was 14 minutes and 12 second. The kidney was full assessed after removal of clamps. No bleeding or other major areas of concern. Weck and Hemolock clips were used to bolster and tightened to approximate the edges. Surgicel hemostatic agent sheets were placed over the vessels and on the incised edge. Hemostatic agents Tisseel and Floseal were also placed. Hemostatic agent was also placed on the vessels. No major bleeding or other issues. Gerota's tissues were replaced and sutured utilizing the 3-0 vicryl and clips to cover the area. The excised mass was placed in an endocatch bag for removal. A Flat drain was placed through the inferior robot port and the port was removed. It was positioned in the gutter lateral to the liver and colon. This was secured with a silk 1-0 suture. The entire dissection space was inspected one final time. No bleeding or injuries or areas of concern were noted. No tumor or other concerning features were noted. Dr Berg was involved in this entire portion of the procedure. Once the area was inspected the drug safety assistant position was resumed by Nahomi Pritchett At this point, the robot was undocked and moved away from the patient. The port sites were all assessed laparoscopically. The endoscopic bag was moved into the midline incision. The inferior 12 mm port site was closed with a 1-0 Vicryl suture. The other ports were assessed and no issues observed. The payroll and benefits assistant port was opened further exposing fascia which was then opened in order to removed the mass within the bag. A running 1-0 vicryl suture was used to close fascia. The skin at each site was closed with a stapling device. The area was cleaned and bandages placed on each incision. The patient was cleaned and bandaged. The patient was moved back into the supine position The patient was cleaned, aroused from anesthesia, and transferred to the pacu in stable condition having tolerated the procedure well with no complications. I was present and participated in all aspects of the procedure. JOSELITO Reid was critical in the portions as mentioned above. I attest to the content of the Intraoperative Record and any orders documented therein. Any exceptions are noted below.
[2022-05-15] MEDS: fentaNYL citrate 100 MCG/2 ML VIAL IV PRN ×4 (11:34→12:00)
[2022-05-15] MEDS ORDERED: SODIUM CHLORIDE 0.9% 50 ML BAG ONE (11:41)
[2022-05-15] MEDS ORDERED: PROMETHAZINE HCL INJ 25 MG/ML 1 ML VIAL ONE (11:41)
[2022-05-15] MEDS ORDERED: PROMETHAZINE HCL 6.25 MG in SODIUM CHLORIDE 0.9% 50 ML IV STA (11:42)
[2022-05-15 12:07] LABS: Hematocrit (blood only) 39.7 % (40.1-51.0); Hemoglobin 13.7 g/dl (14.0-18.0); Mean Corpuscular Hemoglobin 29.8 pg (25.0-34.0); Mean Corpuscular Hgb Conc 34.5 g/dL (32.0-36.0); Mean Corpuscular Volume 86.3 fL (80.0-100.0); Mean Platelet Volume 9.2 fL (9.4-12.4); Platelet Count 203 K/uL (130-400); RDW Coefficient of Variation 13.8 % (11.5-14.5); White Blood Count 11.73 K/ul (4.8-10.8)
--- NOTE | 2022-05-15 12:15 | Anesthesiology Progress Note ---
Date of Service May 15, 2022 Anesthesia Post Procedure Vital Signs Vital Signs: Temp Pulse Pulse Resp BP BP Pulse Ox 05/15/22 12:05 106 H 12 140/80 98 05/15/22 11:55 105 H 12 145/81 H 98 05/15/22 11:45 97 H 16 141/77 H 95 05/15/22 11:35 105 H 16 134/81 100 05/15/22 11:25 95 H 16 136/78 100 05/15/22 11:19 97.2 F L 101 H 25 H 118/66 100 05/15/22 06:26 97.9 F 123 H 16 133/83 95 O2 Del Method O2 Flow Rate 05/15/22 12:05 Nasal Cannula 2 05/15/22 11:55 Nasal Cannula 2 05/15/22 11:45 Room Air 05/15/22 11:35 Oxymask 10 05/15/22 11:25 Oxymask 10 05/15/22 11:19 Oxymask 10 05/15/22 06:26 Room Air Pain Intensity Right Abdomen: Pain Intensity: 3 Transfer of Care Handoff Completed per policy Notes Mental Status: alert / awake / arousable and participated in evaluation Patient Amnestic to Procedure: Yes Nausea / Vomiting: adequately controlled Pain: adequately controlled Airway Patency, RR, SpO2: stable & adequate BP & HR: stable & adequate Hydration State: stable & adequate Anesthetic Complications: no major complications apparent and Pt Satisfied with anesthetic care
[2022-05-15 12:24] LABS: Basophils # (auto) 0.03 K/uL (0-0.2); Basophils % (auto) 0.3 %; Eosinophils # (auto) 0.01 K/uL (0-0.50); Eosinophils % (auto) 0.1 %; Immature Granulocytes # (auto) 0.05 K/uL (0.00-0.02); Immature Granulocytes % (auto) 0.4 %; Lymphocytes # (auto) 0.73 K/uL (1.2-3.4); Lymphocytes % (auto) 6.2 %; Monocytes # (auto) 0.21 K/uL (0.24-0.82); Monocytes % (auto) 1.8 %; Neutrophils % (auto) 91.2 %
[2022-05-15 12:28] LABS: Creatinine Clr Calc Pharmacy 57.9 ml/min; Est GFR (African American) 90.5 ml/min; Est GFR (Non-African American) 78.1 ml/min; Potassium 3.7 mmol/L (3.5-5.1)
[2022-05-15] MEDS ORDERED: MoRPHine SULFATE 4 MG/ML 1 ML CARP\\VIAL IV PRN (13:53)
[2022-05-15] MEDS ORDERED: MoRPHine SULFATE 2 MG/ML CARP IV PRN (13:53)
[2022-05-15] MEDS ORDERED: oxyCODONE HCL IR 5 MG TAB (IMMEDIATE RELEASE) PO PRN ×2 (13:53)
[2022-05-15] MEDS: DUTASTERIDE ~ ORDER AWAITING ACTION SCH (14:59)
[2022-05-15] MEDS: LACTATED RINGER'S 1,000 ML IV SCH (15:16)
[2022-05-15] MEDS ORDERED: CHECK SCOPOLAMINE PATCH PLACEMENT SCH (16:00)
[2022-05-15] MEDS: ceFAZolin 2000MG 2,000 MG/15 ML SYR IV SCH (16:04)
[2022-05-15] MEDS: ACETAMINOPHEN 325 MG TAB PO PRN (17:48)
[2022-05-15] MEDS: DOCUSATE SODIUM 100 MG CAP PO SCH (21:06)
[2022-05-15] MEDS: TAMSULOSIN HCL 0.4 MG CAP PO SCH (21:06)
[2022-05-15] MEDS: SIMVASTATIN 40 MG TAB PO SCH (21:06)
[2022-05-16] MEDS: ACETAMINOPHEN 325 MG TAB PO PRN ×3 (00:40→19:57)
[2022-05-16] MEDS: ceFAZolin 2000MG 2,000 MG/15 ML SYR IV SCH (00:43)
[2022-05-16] MEDS: LACTATED RINGER'S 1,000 ML IV SCH ×3 (01:30→20:03)
[2022-05-16] MEDS: DUTASTERIDE ~ ORDER AWAITING ACTION SCH ×3 (04:14→14:49)
[2022-05-16] MEDS: SIMETHICONE 80 MG CHEW PO PRN ×3 (05:10→19:59)
[2022-05-16] MEDS: BACLOFEN 10 MG TAB PO PRN ×3 (05:35→17:55)
[2022-05-16] MEDS: PANTOprazole 40 MG TAB PO SCH (08:07)
[2022-05-16] MEDS: HEPARIN SOD 5,000 UNIT/0.5 ML VIAL SQ SCH ×2 (08:07→19:59)
[2022-05-16] MEDS: DOCUSATE SODIUM 100 MG CAP PO SCH ×2 (08:08→20:00)
[2022-05-16 09:02] LABS: Basophils # (auto) 0.03 K/uL (0-0.2); Basophils % (auto) 0.2 %; Eosinophils # (auto) 0.01 K/uL (0-0.50); Eosinophils % (auto) 0.1 %; Hematocrit (blood only) 36.2 % (40.1-51.0); Hemoglobin 12.5 g/dl (14.0-18.0); Immature Granulocytes # (auto) 0.08 K/uL (0.00-0.02); Immature Granulocytes % (auto) 0.6 %; Lymphocytes # (auto) 1.44 K/uL (1.2-3.4); Lymphocytes % (auto) 10.1 %; Mean Corpuscular Hemoglobin 29.3 pg (25.0-34.0); Mean Corpuscular Hgb Conc 34.5 g/dL (32.0-36.0); Mean Platelet Volume 9.3 fL (9.4-12.4); Monocytes # (auto) 1.32 K/uL (0.24-0.82); Monocytes % (auto) 9.2 %; Neutrophils # (auto) 11.42 K/uL (1.4-6.5); Neutrophils % (auto) 79.8 %; Platelet Count 236 K/uL (130-400); RDW Coefficient of Variation 13.7 % (11.5-14.5); RDW Standard Deviation 42.5 fL (36.4-46.3); Red Blood Count 4.26 M/uL (4.63-6.08)
[2022-05-16 09:11] LABS: BUN Creatinine Ratio 9.2 (10-20); Calcium 8.2 mg/dl (8.5-10.1); Creatinine Clr Calc Pharmacy 66.5 ml/min; Est GFR (African American) 104.2 ml/min; Est GFR (Non-African American) 89.9 ml/min; Potassium 3.6 mmol/L (3.5-5.1)
--- NOTE | 2022-05-16 09:18 | Urology Progress Note ---
Date of Service May 16, 2022 Assessment & Plan (1) Renal mass: Plan -POD #1 s/p Robotic Assisted Right Laparoscopic Partial Nephrectomy for possible renal malignancy with Dr. Pederson. -Afebrile and hemodynamically stable. -Labs reviewed-WBC 14.30, hemoglobin 12.5, creatinine 0.87. -Salcedo catheter intact, draining clear yellow urine. -Tolerating clear liquid diet. -Incisions appropriate. EL with serosanguineous drainage. Plan- -Remove Salcedo catheter this morning and monitor for void. -Maintain EL drain, will continue to monitor. -Encourage ambulation. -Continue clear liquid diet, can advance as tolerated. -Continue supportive care, prn analgesics, and prn antiemetics. -Will reassess after lunch, possibly home later today or tomorrow pending patient progression. Admission and Anticipated Discharge Date Admission Date: May 15, 2022 Subjective Patient examined at bedside this AM. Awake, resting in bed on arrival. No acute distress. Reports some gas pain and back spasms overnight, managing with prn baclofen and simethicone. Salcedo catheter intact, draining clear yellow urine. Urine output overnight 800 mL. No fevers. Tolerating clear liquids. Denies nausea or vomiting. Incisions appropriate. EL with serosanguineous drainage, output overnight 60 mL. Review of Systems Constitutional: as per Subjective / HPI Gastrointestinal: as per Subjective / HPI Genitourinary: + as per Subjective / HPI Physical Exam Constitutional: no acute distress Respiratory: no respiratory distress and no labored breathing Gastrointestinal (Abdomen): Percussion/Palpation: + abdomen tender (mild right sided tenderness with palpation) and abdomen soft Incisions appropriate, izabela and gauze dressing intact. EL with serosanguineous drainage. Neurologic: moves all extremities and awake Psychiatric: A+Ox3, euthymic affect Genitourinary: Salcedo catheter intact, draining clear yellow urine Results & Data ([facility]) Vital Signs (Past 12 Hours) Vital Signs Temp Pulse Resp BP BP Pulse Ox O2 Del Method 05/16/22 07:51 36.9 C 77 20 133/72 93 Room Air 05/16/22 02:50 37.0 C 88 16 113/70 95 Room Air 05/15/22 22:58 37.3 C 93 H 16 111/68 94 Room Air PG Care Time/CCT Total # of Minutes Spent Total Time Spent with Patient: Total time spent is greater than 50% in coordination of care (as documented) at patient's floor/unit and/or counseling patient: Coding Level of Care Code None Diagnoses Renal mass N28.89
[2022-05-16] MEDS ORDERED: METOCLOPRAMIDE HCL INJ 5 MG/ML 2 ML VIAL IV PRN (09:36)
[2022-05-16] MEDS: METOCLOPRAMIDE HCL 5 MG TABLET PO PRN ×2 (10:56→19:59)
[2022-05-16] MEDS: SIMVASTATIN 40 MG TAB PO SCH (19:58)
[2022-05-16] MEDS: TAMSULOSIN HCL 0.4 MG CAP PO SCH (19:58)
[2022-05-17] MEDS: DUTASTERIDE ~ ORDER AWAITING ACTION SCH (00:39)
[2022-05-17] MEDS: LACTATED RINGER'S 1,000 ML IV SCH (05:40)
[2022-05-17] MEDS: ACETAMINOPHEN 325 MG TAB PO PRN (07:42)
[2022-05-17 08:15] LABS: Basophils # (auto) 0.05 K/uL (0-0.2); Basophils % (auto) 0.6 %; Eosinophils # (auto) 0.07 K/uL (0-0.50); Eosinophils % (auto) 0.8 %; Hematocrit (blood only) 35.1 % (40.1-51.0); Hemoglobin 11.8 g/dl (14.0-18.0); Immature Granulocytes # (auto) 0.02 K/uL (0.00-0.02); Immature Granulocytes % (auto) 0.2 %; Lymphocytes # (auto) 1.91 K/uL (1.2-3.4); Lymphocytes % (auto) 21.8 %; Mean Corpuscular Hemoglobin 29.4 pg (25.0-34.0); Mean Corpuscular Hgb Conc 33.6 g/dL (32.0-36.0); Mean Corpuscular Volume 87.3 fL (80.0-100.0); Mean Platelet Volume 9.6 fL (9.4-12.4); Monocytes # (auto) 0.99 K/uL (0.24-0.82); Monocytes % (auto) 11.3 %; Neutrophils # (auto) 5.72 K/uL (1.4-6.5); Neutrophils % (auto) 65.3 %; Platelet Count 216 K/uL (130-400); RDW Coefficient of Variation 13.9 % (11.5-14.5); RDW Standard Deviation 45.1 fL (36.4-46.3); Red Blood Count 4.02 M/uL (4.63-6.08); White Blood Count 8.76 K/ul (4.8-10.8)
[2022-05-17 08:45] LABS: BUN Creatinine Ratio 10.3 (10-20); Creatinine Clr Calc Pharmacy 74.2 ml/min; Est GFR (Non-African American) 94.1 ml/min; Potassium 3.6 mmol/L (3.5-5.1)
--- NOTE | 2022-05-17 08:47 | Urology Progress Note ---
Date of Service May 17, 2022 Assessment & Plan (1) Renal mass: Plan -POD #2 s/p Robotic Assisted Right Laparoscopic Partial Nephrectomy for possible renal malignancy with Dr. Pederson. -Afebrile and hemodynamically stable. -Labs reviewed-leukocytosis improving, hemoglobin stable, creatinine stable -Salcedo catheter removed yesterday, voiding spontaneously -Tolerating clear liquid diet. -Incisions appropriate. EL with serosanguineous drainage. Plan- -EL removed at bedside today -Continue regular diet -Encourage ambulation. -Continue supportive care, prn analgesics, and prn antiemetics. -Discharge today Admission and Anticipated Discharge Date Admission Date: May 15, 2022 Subjective No acute events overnight. Afebrile with stable vitals. Urine output appropriate. Drain output not concerning. Labs today show a white blood cell count of 8.7, hemoglobin of 11.8, creatinine of 0.78. Patient reports subjectively feeling much better. Tolerating regular food this morning. Ambulating without issue. Urinating without issue. Feels well enough to go home. Review of Systems Review of Systems: 14 point review of systems negative outside of what is listed above in HPI Physical Exam Physical Exam: General: Alert and oriented, no acute distress HEENT: Normocephalic, mucous membranes moist Cardiovascular: Regular rate Pulmonary: Nonlabored respirations Abdomen: Nondistended, appropriately tender, soft. Incisions clean dry and intact with izabela in place. EL with minimal serosanguineous output Extremities: Moves all 4 spontaneously Neuro: No gross deficits Skin: Warm, dry, no rashes noted Results & Data ([facility]) Vital Signs (Past 12 Hours) Vital Signs Temp Pulse Pulse Resp BP Pulse Ox O2 Del Method 05/17/22 07:30 36.7 C 83 18 136/81 94 Room Air 05/17/22 03:09 37.1 C 89 18 132/73 93 Room Air PG Care Time/CCT Total # of Minutes Spent Total Time Spent with Patient: Total time spent is greater than 50% in coordination of care (as documented) at patient's floor/unit and/or counseling patient: Coding Level of Care Code 70886 Subseq Hosp Care Lvl 2 Diagnoses Renal mass N28.89
--- NOTE | 2022-05-17 09:24 | Discharge Summary ---
Date of Service May 17, 2022 Admission HPI Per Admitting Provider Patient with diagnosis of suspicious renal mass. Patient with a known history of elevated PSA. Has previously had PSAs up to 6.9. Had undergone prostate needle biopsy which found areas of inflammation. Most recent PSA came back as 4.8 this is up since the last visit however patient has had significant fluctuations PSA in the past. Last visit patient had been found to have a small renal lesion approximately 7 mm on imaging. I discussed different options and elected to move forward with serial imaging and observation. Patient underwent CT scan with and without contrast and lesion previously measured under a centimeter is now measuring 2.3 cm with notable enhancement. Admission Exam Per Admitting Provider General: Alert in no acute distress. HEENT: Inspection normal Psychologic: Normal affect. Respiratory: Nonlabored. No use of accessory muscles. Skin: [place] and Dry. No rashes or visible lesions. Abdomen: Soft, nontender Principal Diagnosis Renal mass Discharge Exam General: Alert and oriented, no acute distress HEENT: Normocephalic, mucous membranes moist Cardiovascular: Regular rate Pulmonary: Nonlabored respirations Abdomen: Nondistended, appropriately tender, soft. Incisions clean dry and intact with izabela in place. EL with minimal serosanguineous output Extremities: Moves all 4 spontaneously Neuro: No gross deficits Skin: Warm, dry, no rashes noted Discharge Data Allergies Allergy/AdvReac Type Severity Reaction Status Date / Time chlorhexidine Allergy Mild rash Verified 05/15/22 06:21 hydrocodone AdvReac Intermediate Vomiting Verified 05/15/22 06:21 morphine AdvReac Intermediate NAUSEA Verified 05/15/22 06:21 VOMITING Procedures Performed Operation Date: 05/15/22 07:30 Actual Procedures p Robotic Right Laparoscopic Assisted Partial Nephrectomy(Right) - He Pederson DO Hospital Course (1) Renal mass: Patient underwent robotic assisted right laparoscopic partial nephrectomy on 05/15/2022. Transferred to the floor in stable condition. Postoperative labs were stable throughout his stay. [place] catheter was removed on day 1. Progressed to regular diet on day 2. EL drain was removed on day 2. Patient was deemed medically stable for discharge on postop day 2. Total Time Total Time Spent Total Time Spent (In Minutes): 10 Discharge Plan Discharge Items Patient Disposition: Home - Self-Care Reason For Visit: Renal Mass Discharge Diagnosis: Renal Mass Activity: Per Instructions section Lifting: No more than 25 pounds Bathing Comment: OK to shower. No tub baths or soaks. Sexual Activity: Wait until after follow-up appointment Exercise/Sports: Wait until after follow-up appointment Driving/Machine Use: Do not drive if taking prescription pain medication. Non-emergency contact: Surgeon and Urologist Call non-emergency contact if: you have any medication questions, your pain is not controlled, your pain is worsening, you have a fever, your wound has increased redness, your wound has increased drainage and your wound pain has increased Follow-up/Referrals: He Pederson DO [Physician] - 06/03/22 3:45 pm (Virtual phone visit) George Finley M.D. [Primary Care Provider] - Urology,Nurse [FAKE FOR SCHEDULES] - 05/22/22 9:00 am Diet: Regular Addtl Attending Provider Instructions: Please take all medications as prescribed and keep all follow-ups as scheduled. Please call our office at [phone] with any questions, concerns or need to reschedule appointments for any reason. We are happy to assist you. Recovering at home: We recommend having someone with you for the first few days after surgery to help care for you. It is okay to shower tomorrow. Please avoid swimming, bathing or using hot tub until incisions are well healed. Avoid driving until you are not requiring pain medication any further. Walk at least a few times a day. Increase your distance, as you feel able. Stairs in your home are okay. Please avoid strenuous or sexual activity until your follow-up. We recommend using stool softener (i.e. Colace) to prevent constipation and straining, especially the first two weeks post operatively. Call [facility] at [phone] if you experience: Chest pain or trouble breathing (call [phone] or go to the hospital). Fever of 101F or higher Symptoms of infection at incision site, including redness or swelling, warmth, or bad-smelling drainage If you are unable to urinate. Pain that is not controlled with medicines Tylenol with codeine, baclofen, Zofran and Toradol sent to pharmacy. Take as needed for discomfort. Be careful when taking all of these medications at once due to potential side effect interactions. Pending Studies at Discharge: Yes (pathology) Stand-Alone Forms: My [facility] Medications and DC Order Prescriptions: New baclofen 5 mg tablet 5 mg PO Q8H Qty: 9 0RF Rx Instructions: as needed for back spasms acetaminophen-codeine 300-15 mg tablet 1 tab PO Q6H Qty: 5 0RF ondansetron 4 mg tablet,disintegrating 4 mg PO BID PRN (Reason: nausea and vomiting) Qty: 5 0RF Continued pantoprazole 40 mg tablet,delayed release (DR/EC) 40 mg PO QAM Qty: 90 3RF metoclopramide HCl [Reglan] 5 mg tablet 5 mg PO AC PRN (Reason: ABDOMINAL BLOATING) Qty: 30 0RF tamsulosin 0.4 mg capsule 0.4 mg PO HS Qty: 90 3RF tadalafil 5 mg tablet 20 mg PO ONCE PRN (Reason: sexual activity) Qty: 30 11RF ciprofloxacin HCl [Cipro] 500 mg tablet 500 mg PO BID Qty: 10 0RF Rx Instructions: Start 1.5 days prior to procedure sildenafil (pulm.hypertension) 20 mg tablet 100 mg PO ONCE PRN (Reason: sexual activity) Qty: 30 11RF Rx Instructions: Take approx 1 hour prior to activity. Avoid large or heavy meals for maximum effectiveness. multivitamin Tablet 1 tab PO QAM zinc 50 mg Tablet 30 mg PO QAM magnesium oxide 250 mg Tablet 250 mg PO BID coQ10 (ubiquinol) 100 mg Capsule 100 mg PO HS simvastatin 40 mg Tablet 40 mg PO HS potassium gluconate 595 mg (99 mg) Tablet 595 mg PO QAM cholecalciferol (vitamin D3) [Vitamin D3] 2,000 unit Capsule 2,000 unit PO QAM dutasteride 0.5 mg capsule 0.5 mg PO HS Discharge Orders: Discharge Order (Routine); Ordered 05/17/22 Ordered By: Chauncey Berg Admission Data Admit Date/Time: 05/15/22 11:31 Attending Provider: He Pederson Admit Provider: He Pederson Primary Care Provider: George Fniley Other Interventions: Discharge Summary Assessment (RN) Last Done: 05/17/22 10:17 Coding Level of Care Code D/C DAY MANAGEMENT <30 MINS Diagnoses Renal mass N28.89
[2022-05-17] MEDS: PANTOprazole 40 MG TAB PO SCH (09:32)
[2022-05-17] MEDS: HEPARIN SOD 5,000 UNIT/0.5 ML VIAL SQ SCH (09:33)
[2022-05-17] MEDS: DOCUSATE SODIUM 100 MG CAP PO SCH (09:33)
[2022-05-17] MEDS: BACLOFEN 10 MG TAB PO PRN (09:35)
== END 2022-05-17 11:48 | disposition home or self-care (01) ==
LOC: ASU 05:55 → INTOOBSV 11:31 → PACUINP 11:31 → 3N 14:21
DX: N52.9 Male erectile dysfunction, unspecified; Z88.5 Allergy status to narcotic agent; R97.20 Elevated prostate specific antigen [PSA]; D30.01 Benign neoplasm of right kidney; N20.0 Calculus of kidney; Z88.3 Allergy status to other anti-infective agents; Z86.16 Personal history of COVID-19; R31.9 Hematuria, unspecified; Z79.899 Other long term (current) drug therapy